=== PATIENT | male | born 2000 | race Two or more races ===

== ENCOUNTER 2020-02-08 05:21 | Emergency (ER) | payer OTHER ==
[2020-02-08] MEDS ORDERED: ACETAMINOPHEN 325 MG TABLET PO ONE (05:37)
--- NOTE | 2020-02-08 07:37 | RADIOLOGY REPORT (SQ) ---
Left knee x-ray four views on 02/08/2020 at 7:07 AM Clinical indications: Left knee pain after injury COMPARISON: None FINDINGS: No joint effusion is noted. There are no fractures. Visualized joints are well aligned. No bony abnormality is noted. IMPRESSION: No acute abnormality.
[2020-02-08] MEDS ORDERED: IBUPROFEN 600 MG TABLET PO ONE (09:03)
--- NOTE | 2020-02-08 09:10 | ER Document Report ---
ED General - General Chief Complaint: Knee Injury Stated Complaint: SEVERE KNEE PAIN INJURY Time Seen by Provider: 02/08/20 08:47 - HPI Notes: Chief complaint: Left knee injury History of present illness: Generally healthy 19-year-old male states that he has had a new injury to his left knee which occurred yesterday. Patient indicates that he played football in high school and had taken significant blows to both knees in the past. His left knee has occasionally locked and felt like it was going to give way intermittently since then. 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 He felt as though something popped in the left knee joint and since then he has had pain with weightbearing primarily along the anterior and lateral aspect of the joint. He took some Tylenol and says this provided partial relief of his discomfort. - Related Data Allergies/Adverse Reactions: No Known Allergies Allergy (Unverified 02/08/20 05:32) Past Medical History - General Information source: Patient, [facility] Records - Social History Smoking Status: Never Smoker Frequency of alcohol use: None Drug Abuse: None Family History: Reviewed & Not Pertinent - Medical History Medical History: Negative Past Surgical History: Reports: None Review of Systems - Review of Systems Notes: Constitutional: Negative for fever. HENT: Negative for sore throat. Eyes: Negative for visual changes. Cardiovascular: Negative for chest pain. Respiratory: Negative for shortness of breath. Gastrointestinal: Negative for abdominal pain, vomiting or diarrhea. Genitourinary: Negative for dysuria. Musculoskeletal: As per HPI. Skin: Negative for rash. Neurological: Negative for headaches, weakness or numbness. 10 point ROS negative except as marked above and in HPI. Physical Exam - Vital signs Vitals: Temp Pulse Resp BP Pulse Ox 98.4 F 76 16 130/57 H 98 02/08/20 05:28 02/08/20 05:28 02/08/20 05:28 02/08/20 05:28 02/08/20 05:28 - Notes Notes: GENERAL: Somewhat obese male approximately stated age appearing in no acute distress. SKIN: Good turgor no rashes. HEAD: Normocephalic atraumatic. EYES: PERRLA. EOMI. Conjunctivae and sclerae clear. NECK: Supple. No masses or thyromegaly. No adenopathy. Carotids 2+ without bruits. No JVD. BACK: Symmetrical without tenderness. CHEST: Respirations unlabored. Breath sounds clear and symmetrical. HEART: Regular rhythm. No murmur gallop or rub. ABDOMEN: Soft nontender without masses, organomegaly or rebound. Bowel sounds normally active. No bruits. EXTREMITIES: Left knee shows mild crepitus. There is no effusion present. There is tenderness primarily along the lateral joint line. Range of motion is decreased secondary to pain. No gross ligamentous instability. Exam of the right knee is remarkable only for mild crepitus. No edema. No calf tenderness. Cap refill less than 1.5 seconds. Dorsalis pedis and posterior tibial pulses 3+ and symmetrical. NEUROLOGICAL: Alert and oriented x3. Nonfocal. PSYCHIATRIC: Appropriate affect. Course - Re-evaluation Re-evalutation: 02/08/20 09:08 Left knee films unremarkable. Clinically I think he has a lateral meniscus injury. I am going to start him on ibuprofen and suggest ice and elevation. We will also give him a knee immobilizer and crutches. 3-day work note. Discussion of internal derangement of knee joint. Orthopedic referral. 02/08/20 09:09 Findings, clinical impression and plan of treatment have been discussed with patient/family. Understanding of current findings and recommendations has been acknowledged by them and there is agreement regarding disposition and follow-up. - Vital Signs Vital signs: Temp Pulse Resp BP Pulse Ox 98.4 F 76 16 130/57 H 98 02/08/20 05:28 02/08/20 05:28 02/08/20 05:28 02/08/20 05:28 02/08/20 05:28 - Diagnostic Test Radiology reviewed: Reports reviewed - Plain films left knee negative per radiologist. Procedures - Immobilization Left Knee Pre-Proc Neuro Vasc Exam: Normal Immobilizer type: Crutches, Knee immobilizer Performed by: PCT Post-Proc Neuro Vasc Exam: Normal Discharge - Discharge Clinical Impression: Internal derangement left knee Condition: Stable Disposition: HOME, SELF-CARE Instructions: Use of Crutches ([facility]), Ice & Elevation ([facility]), Knee Immobilizing Splint ([facility]), Suspected Internal Knee Injury ([facility]) Prescriptions: Ibuprofen [Motrin 600 mg Tablet] 600 mg PO Q8HP PRN 10 Days #30 tablet PRN Reason: Forms: Return to Work Referrals: LULU LAWSON DO [ACTIVE STAFF] - Follow up as needed
[2020-02-08 09:27] VITALS: BP 128/62
== END 2020-02-08 09:27 | disposition home or self-care (01) ==
LOC: ER 05:21
DX: M23.92 Unspecified internal derangement of left knee (principal); E66.9 Obesity, unspecified
CPT/HCPCS: 99283